=== PATIENT | female | born 1975 | race Caucasian/White ===

== ENCOUNTER 2025-02-04 06:22 | Day surgery (SDC) | payer OTHER, SELFPAY ==
[2025-02-04 07:47] LABS: Glucose - Point of Care 89 mg/dl (70-99)
== END 2025-02-04 09:06 | disposition home or self-care (01) ==
LOC: GI 06:22
PROVIDERS: ATTENDING PHYSICIAN Internal Medicine Gastroenterology
DX: Z12.11 Encounter for screening for malignant neoplasm of colon (principal); K64.8 Other hemorrhoids
CPT/HCPCS: G0121; 82962

== ENCOUNTER → 2025-03-28 08:10 | Outpatient (REF) | payer OTHER, SELFPAY | LOC: RAD 08:10 | PROVIDERS: ATTENDING PHYSICIAN Internal Medicine Gastroenterology | DX: K59.09 Other constipation (principal) | CPT/HCPCS: 74270 ==